=== PATIENT | female | born 1980 | race Caucasian/White ===

== ENCOUNTER 2022-01-15 15:39 | Emergency (ER) | payer MEDICAID, SELFPAY ==
[2022-01-15 15:41] VITALS: BP 132/85; PULSE 118; RESP 18; TEMP 36.6; O2SAT 100; BMI 21.9
[2022-01-15 16:25] LABS: Bacteria 0 SEEN /hpf (None Seen); Mucous, Urine 0 SEEN /hpf (<or=2+); Red Blood Cells-Urine 0 SEEN /hpf (0-5); Squamous Epithelial Cells - UA 0 SEEN /hpf (5-10); White Blood Cells 0 SEEN /hpf (0-5)
[2022-01-15] MEDS: 0.9% Normal Saline 1,000 ML 999 ML IV (16:32)
[2022-01-15] MEDS: LORazepam 2 MG/ML Syringe 1 MG IV (16:33)
[2022-01-15 16:35] LABS: Color, Urine Yellow (Yellow); Glucose, Dipstick Normal (Normal); Ketone-Dipstick Negative (Negative); Leukocyte Esterase-Dipstick 25 /ul (Negative); Nitrite-Dipstick Negative (Negative); Occult Blood-Urine 25 /ul (Negative); Protein-Dipstick 15 mg/dl (Negative); Urine Bilirubin Dipstick Negative (Negative); Urine Clarity Clear (Clear); Urine Urobilinogen Normal (Normal)
[2022-01-15 16:36] LABS: Absolute Lymphocyte Count 3.04 X10^3/uL (0.83-4.51); Absolute Neutrophil Count 12.4 X10^3/uL (2.0-7.7); Basophil% 0.6 % (0-1); Eosinophil# 0.26 X10^3/uL; Eosinophils% 1.4 % (0-5); Hematocrit 42.8 % (37-47); Hemoglobin 14.3 g/dL (12.0-15.0); Lymphocyte # 3.04 X10^3/ul (0.83-4.51); Lymphocyte % 16.8 % (19-41); Mean Corp Hgb Conc 33.4 g/dL (32-36); Mean Corpuscular Hgb 30.5 pg (27.0-32.0); Mean Corpuscular Volume 91.3 fL (81-99); Mean Platelet Vol. 8.7 fl (6.2-12.0); Monocyte# 2.18 X10^3/uL; Monocyte% 12.1 % (0-10); NRBC Flagged by Analyzer 0 % (0-5); Neutrophil # 12.39 X10^3/uL (2.7-7.7); Neutrophil % 68.7 % (47-70); POSITIVE DIFFERENTIAL YES; Platelet Count 346 K/mm3 (150-450); RBC Distribution Width SD 42.9 fl (35.1-43.9); Red Blood Count 4.69 M/mm3 (4.2-5.4); White Blood Count 18.1 K/mm3 (4.4-11.0)
[2022-01-15 16:39] LABS: Differential Indicated SCAN CRITERIA MET
[2022-01-15 16:45] LABS: Amphetamine Urine VISTA NEGATIVE (<1000 ng/mL); Barbiturate Urine VISTA NEGATIVE (< 200 ng/mL); Benzodiazepine Urine VISTA NEGATIVE (< 200 ng/mL); Cocaine Urine VISTA NEGATIVE (< 300 ng/mL); Ecstacy Urine VISTA NEGATIVE (< 500 ng/mL); Methadone Urine VISTA NEGATIVE (< 300 ng/mL); PCP Urine VISTA NEGATIVE (< 25 ng/mL); THC Urine VISTA POSITIVE (< 50 ng/mL); Vista UDS pH Range 6
[2022-01-15 16:59] LABS: Internal QC Validated? YES +Cl - CLEAR BKGD; Pregnancy, Serum, hCG Quali. NEGATIVE Negative
[2022-01-15 17:01] LABS: ALB/GLOB Ratio 1.4 RATIO (0.9-2.4); AST(SGOT) 10 U/L (15-37); Alanine Aminotransfer ALT/SGPT 19 U/L (13-56); Albumin, Serum 4.1 g/dL (3.2-5.0); Alkaline Phosphatase 61 U/L (45-117); Anion Gap 5 (5-15); BUN 12 mg/dL (7-18); BUN/Creat Ratio 13.5 RATIO (10-20); Calcium,Total 8.6 mg/dL (8.5-10.1); Chloride 108 mmol/L (98-107); Creatinine, Serum 0.89 mg/dL (0.55-1.02); EST Glomerular Filtration Rate 75 mL/min (>60); Est Glom Filt Rate - Afr Amer 91 mL/min (>60); Estimated Creatinine Clearance 67.12 ml/min; Glucose 141 mg/dL (74-106); Potassium 4.1 mmol/L (3.5-5.1); Protein, Total 7.1 g/dL (6.4-8.2); Sodium Level 139 mmol/L (136-145); Thyroid Stim Hormone (TSH) 0.69 uIU/mL (0.358-3.74)
[2022-01-15 17:02] LABS: Alcohol, Blood (Medical)-Serum < 3.0 mg/dL
[2022-01-15 17:07] LABS: Differential Comment SCANNED
--- NOTE | 2022-01-15 17:34 | NURSING ---
CRISIS AWARE PT NEEDS TO BE SEEN
--- NOTE | 2022-01-15 17:36 | EX.ED.DYSGE1 ---
HPI <BRETT Quiroga - Last Filed: 01/15/22 18:26> History of Present Illness Chief Complaint: Mental Health Narrative Narrative: 41-year-old female with no significant medical history presents to the emergency department by EMS for complaints of paranoia. Patient arrives extremely anxious, patient does believe that there are multiple people trying to kill her, she states that there are multiple things happening in her life that she can prove this is happening. She has multiple people calling her, patient states that when she calls the numbers back there is no answer. She states that people continue to add numbers and subtract numbers from her phone to confuse her. Patient states that this has been going on as long as 2 years. Patient also states that 1 month ago she was diagnosed with Lyme disease, was treated for a full course for 2 weeks and then has followed up with infectious disease doctor x2. This is all been in [facility]. Today, the patient states that she is has been even more stressed, she is scared for her life as well as the safety of her children. Her mother is attending her. PFS <BRETT Quiroga - Last Filed: 01/15/22 18:26> [facility] Medical History (Updated 01/15/22 @ 21:[address] Viri Boland, DO) Chronic ITP (idiopathic thrombocytopenia) Home Medications NK 01/15/22 [History Last Taken Unknown] Allergy/AdvReac Type Severity Reaction Status Date / Time No Known Allergies Allergy Verified 01/15/22 15:43 Surgical History (Updated 01/15/22 @ 15:46 by Nena Garduno) History of splenectomy Social History Smoking Status: Current every day smoker tobacco type: cigarettes ROS <BRETT Quiroga - Last Filed: 01/15/22 18:26> ROS ED ROS Narrative Constitutional: Negative for fever, chills, weight loss or gain, weakness Eyes: Negative for vision loss, vision change, double vision ENT: Negative for any hearing changes, ringing in the ears, discharge, pain Nose: Negative for any congestion, runny nose, sinus pain, allergies Throat: Negative for any sore throat, swelling, voice changes, Cardiovascular: Negative for any chest pain, tightness, palpitations, racing heartbeat Respiratory: Negative for any cough, sputum production, hemoptysis, shortness of breath, shortness of breath on exertion, Gastrointestinal: Negative for any abdominal pain, nausea, vomiting, diarrhea, constipation, blood in stool, blood in vomit : Negative for any urinary frequency, incontinence, dysuria, retention, blood in urine Muscle skeletal: Negative for any muscle joint pain, stiffness, myalgias, arthralgias, neck pain, back pain Neurological: Negative for any headache, dizziness, syncope, numbness or tingling Skin: Negative for any rashes, lumps, itching, abrasions, lacerations Psychiatric: Negative for any depression, suicidal ideation, homicidal ideation. Positive for anxiety, stress, paranoia Hematologic: Negative for any easy bruising, excessive bruising, easy bleeding Allergies: Negative for any eczema, hives, rash EXAM <BRETT Quiroga - Last Filed: 01/15/22 18:26> Physical Exam Const Vital Signs: 01/15/22 15:41 01/15/22 17:47 01/15/22 18:09 Temperature 97.8 F Temperature Source Temporal Pulse Rate 118 H 79 Respiratory Rate 18 16 18 Blood Pressure 132/85 H 108/67 Blood Pressure Mean 100 80 Pulse Ox 100 99 Oxygen Delivery Method Room Air Room Air 01/15/22 20:59 01/15/22 22:14 Temperature Temperature Source Pulse Rate 84 110 H Respiratory Rate 16 Blood Pressure 140/62 H Blood Pressure Mean 88 Pulse Ox 99 Oxygen Delivery Method Positive well nourished and well developed General Appearance ED: well developed HEENT Reports TM's clear and moist mucous membranes Negative for trauma or tenderness Tympanic Membrane ED: Yes TM's clear Eyes PERRL and EOMs intact bilaterally Neck no lymphadenopathy and supple Chest Wall inspection of chest normal and palpation of chest normal Resp normal respiratory effort and clear to auscultation bilaterally Effort and Inspection: pain with movement Cardio regular rate, regular rhythm and no murmurs GI normal to inspection, nondistended, normoactive bowel sounds, non-tender and non-distended Auscultation: normoactive bowel sounds Palpation: soft Back/Spine no CVA tenderness Neuro oriented x3 and CN's II-XII intact bilaterally Sensorium / Orientation: alert Motor Exam: strength 5/5 throughout Psych Psych Narrative: Patient continues to look around the room, patient shows clear signs of paranoia. She denies any want of hurting herself or others. She is tearful when talking about the specific things are happening to her that she and her mind prove that this is a plot against her. I did talk to her mother, I asked the mother if she has seen any of the things that the patient is talking about. She denies. The patient continually states that she is not crazy. Mood & Affect: anxious Skin no rashes or lesions noted <Dr. Viri Boland DO - Last Filed: 01/15/22 22:28> Physical Exam Const Vital Signs: 01/15/22 15:41 01/15/22 17:47 01/15/22 18:09 Temperature 97.8 F Temperature Source Temporal Pulse Rate 118 H 79 Respiratory Rate 18 16 18 Blood Pressure 132/85 H 108/67 Blood Pressure Mean 100 80 Pulse Ox 100 99 Oxygen Delivery Method Room Air Room Air 01/15/22 20:59 01/15/22 22:14 Temperature Temperature Source Pulse Rate 84 110 H Respiratory Rate 16 Blood Pressure 140/62 H Blood Pressure Mean 88 Pulse Ox 99 Oxygen Delivery Method MDM <BRETT Quiroga - Last Filed: 01/15/22 18:26> [facility] Narrative Medical decision making narrative: Patient arrives alert, patient is very anxious, shows paranoid behavior. Patient denies any pain, patient's vital signs are stable. Patient did receive a mental health work-up, patient CBC does show a leukocytosis of 18.1, patient has no infectious disease process, patient has no complaints, patient's chemistries are unremarkable. Patient did receive a urinalysis drug abuse, it was only positive for cannabinoid. Due to to the patient's extreme paranoia, the feeling of her being unsafe at home secondary to her thinking someone is coming after, I did reach out to crisis who will evaluate her in the emergency department. Lab Data Labs: Laboratory Results - last 24 hr 01/15/22 01/15/22 01/15/22 16:20 16:20 16:27 WBC 18.1 H RBC 4.69 Hgb 14.3 Hct 42.8 MCV 91.3 MCH 30.5 MCHC 33.4 RDW Std Deviation 42.9 RDW Coeff of Gene 13.0 Plt Count 346 MPV 8.7 Immature Gran % (Auto) 0.400 Neut % (Auto) 68.7 Lymph % (Auto) 16.8 L [place] % (Auto) 12.1 H Eos % (Auto) 1.4 Baso % (Auto) 0.6 Absolute Neuts (auto) 12.4 H Absolute Lymphs (auto) 3.04 Nucleated RBC % 0 Differential Comment SCANNED Diff Path Review May foll Sodium Potassium Chloride Carbon Dioxide Anion Gap BUN Creatinine Estim Creat Clear Calc Est GFR (MDRD) Af Amer Est GFR (MDRD) Non-Af BUN/Creatinine Ratio Glucose Calcium Total Bilirubin AST ALT Alkaline Phosphatase Total Protein Albumin Globulin Albumin/Globulin Ratio TSH Serum , Qual Urine Color Yellow Urine Clarity Clear Urine pH 7.0 Ur Specific [place] 1.020 Urine Protein 15 H Urine Glucose (UA) Normal Urine Ketones Negative Urine Occult Blood 25 H Urine Nitrite Negative Urine Bilirubin Negative Urine Urobilinogen Normal Ur Leukocyte Esterase 25 H Urine RBC 0 SEEN Urine WBC 0 SEEN Ur Squamous Epith Cells 0 SEEN Urine Bacteria 0 SEEN Urine Mucus 0 SEEN Urine Opiates Screen NEGATIVE Urine Methadone Screen NEGATIVE Ur Barbiturates Screen NEGATIVE Ur Phencyclidine Scrn NEGATIVE Ur Amphetamines Screen NEGATIVE MDMA (Ecstasy) Screen NEGATIVE U Benzodiazepines Scrn NEGATIVE Urine Cocaine Screen NEGATIVE U Cannabinoids Screen POSITIVE H Ur Drug Screen Comment Ethyl Alcohol 01/15/22 01/15/22 01/15/22 16:27 16:27 16:27 WBC RBC Hgb Hct MCV MCH MCHC RDW Std Deviation RDW Coeff of Gene Plt Count MPV Immature Gran % (Auto) Neut % (Auto) Lymph % (Auto) [place] % (Auto) Eos % (Auto) Baso % (Auto) Absolute Neuts (auto) Absolute Lymphs (auto) Nucleated RBC % Differential Comment Diff Path Review Sodium 139 Potassium 4.1 Chloride 108 H Carbon Dioxide 26.0 Anion Gap 5 BUN 12 Creatinine 0.89 Estim Creat Clear Calc 67.12 Est GFR (MDRD) Af Amer 91 Est GFR (MDRD) Non-Af 75 BUN/Creatinine Ratio 13.5 Glucose 141 H Calcium 8.6 Total Bilirubin 0.60 AST 10 L ALT 19 Alkaline Phosphatase 61 Total Protein 7.1 Albumin 4.1 Globulin 3.0 Albumin/Globulin Ratio 1.4 TSH 0.69 Serum , Qual NEGATIVE Urine Color Urine Clarity Urine pH Ur Specific [place] Urine Protein Urine Glucose (UA) Urine Ketones Urine Occult Blood Urine Nitrite Urine Bilirubin Urine Urobilinogen Ur Leukocyte Esterase Urine RBC Urine WBC Ur Squamous Epith Cells Urine Bacteria Urine Mucus Urine Opiates Screen Urine Methadone Screen Ur Barbiturates Screen Ur Phencyclidine Scrn Ur Amphetamines Screen MDMA (Ecstasy) Screen U Benzodiazepines Scrn Urine Cocaine Screen U Cannabinoids Screen Ur Drug Screen Comment Ethyl Alcohol < 3.0 <Dr. Viri Boland, DO - Last Filed: 01/15/22 22:28> MDM MDM Narrative Medical decision making narrative: I have personally performed a face to face assessment of the patient and have reviewed the CHE Note. I performed a substantive portion of the visit including all aspects of the following. My frank findings include: History is [patient presents to the emergency department with complaint of paranoia. She presents via EMS with her mother. Patient states that if there are a group of people in [place] that are trying to get her. 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 She had a romantic relationship with an individual that ended up getting cancer and dying. Patient feels like there are cameras in her home watching her and people try to get her for the last 2 years. Patient denies any auditory or visual hallucinations. She denies suicidal ideation. Patient's mother states that patient had some paranoia issues for years but have progressively gotten worse over the last month. Patient also states that she was recently diagnosed with Lyme disease and was treated with antibiotics. Patient denies headache. She denies vision changes. She feels very anxious. Patient is requesting something for anxiety.] Exam is [HEENT-PERRLA, EOMI. Cranial nerves II through XII grossly intact. TMs clear. Mucous membranes moist. No adenopathy. Cardiovascular-regular rate and rhythm without murmur or ectopy Lungs-clear to auscultation, chest wall stable without crepitus or subcu emphysema Abdomen-normoactive bowel sounds, soft, nontender, no rebound or rigidity, no peritoneal signs. Extremities-intact ?4, normal range of motion, normal pulses, atraumatic] Medical Decison Making [lab work significant for an elevated white blood cell count however no source noted for possible infection. Lab work otherwise unremarkable. Urinalysis was unremarkable. Toxicology screen was positive for THC. Patient denies any other drug use. Patient was evaluated by crisis and it was felt that patient would benefit from inpatient hospitalization and stabilization of her paranoia. Plan will be to transfer patient to psychiatric facility for further evaluation and treatment. I did give patient a milligram of Ativan IV. She was given a liter of same fluid bolus.] Care of patient turned over to evening physician awaiting acceptance and transfer to psychiatric facility. Other additions or changes: [None] Lab Data Attestation: I reviewed the patient's lab results. Labs: Laboratory Results - last 24 hr 01/15/22 01/15/22 01/15/22 16:20 16:20 16:27 WBC 18.1 H RBC 4.69 Hgb 14.3 Hct 42.8 MCV 91.3 MCH 30.5 MCHC 33.4 RDW Std Deviation 42.9 RDW Coeff of Gene 13.0 Plt Count 346 MPV 8.7 Immature Gran % (Auto) 0.400 Neut % (Auto) 68.7 Lymph % (Auto) 16.8 L [place] % (Auto) 12.1 H Eos % (Auto) 1.4 Baso % (Auto) 0.6 Absolute Neuts (auto) 12.4 H Absolute Lymphs (auto) 3.04 Nucleated RBC % 0 Differential Comment SCANNED Diff Path Review May foll Sodium Potassium Chloride Carbon Dioxide Anion Gap BUN Creatinine Estim Creat Clear Calc Est GFR (MDRD) Af Amer Est GFR (MDRD) Non-Af BUN/Creatinine Ratio Glucose Calcium Total Bilirubin AST ALT Alkaline Phosphatase Total Protein Albumin Globulin Albumin/Globulin Ratio TSH Serum , Qual Urine Color Yellow Urine Clarity Clear Urine pH 7.0 Ur Specific [place] 1.020 Urine Protein 15 H Urine Glucose (UA) Normal Urine Ketones Negative Urine Occult Blood 25 H Urine Nitrite Negative Urine Bilirubin Negative Urine Urobilinogen Normal Ur Leukocyte Esterase 25 H Urine RBC 0 SEEN Urine WBC 0 SEEN Ur Squamous Epith Cells 0 SEEN Urine Bacteria 0 SEEN Urine Mucus 0 SEEN Urine Opiates Screen NEGATIVE Urine Methadone Screen NEGATIVE Ur Barbiturates Screen NEGATIVE Ur Phencyclidine Scrn NEGATIVE Ur Amphetamines Screen NEGATIVE MDMA (Ecstasy) Screen NEGATIVE U Benzodiazepines Scrn NEGATIVE Urine Cocaine Screen NEGATIVE U Cannabinoids Screen POSITIVE H Ur Drug Screen Comment Ethyl Alcohol 01/15/22 01/15/22 01/15/22 16:27 16:27 16:27 WBC RBC Hgb Hct MCV MCH MCHC RDW Std Deviation RDW Coeff of Gene Plt Count MPV Immature Gran % (Auto) Neut % (Auto) Lymph % (Auto) [place] % (Auto) Eos % (Auto) Baso % (Auto) Absolute Neuts (auto) Absolute Lymphs (auto) Nucleated RBC % Differential Comment Diff Path Review Sodium 139 Potassium 4.1 Chloride 108 H Carbon Dioxide 26.0 Anion Gap 5 BUN 12 Creatinine 0.89 Estim Creat Clear Calc 67.12 Est GFR (MDRD) Af Amer 91 Est GFR (MDRD) Non-Af 75 BUN/Creatinine Ratio 13.5 Glucose 141 H Calcium 8.6 Total Bilirubin 0.60 AST 10 L ALT 19 Alkaline Phosphatase 61 Total Protein 7.1 Albumin 4.1 Globulin 3.0 Albumin/Globulin Ratio 1.4 TSH 0.69 Serum , Qual NEGATIVE Urine Color Urine Clarity Urine pH Ur Specific [place] Urine Protein Urine Glucose (UA) Urine Ketones Urine Occult Blood Urine Nitrite Urine Bilirubin Urine Urobilinogen Ur Leukocyte Esterase Urine RBC Urine WBC Ur Squamous Epith Cells Urine Bacteria Urine Mucus Urine Opiates Screen Urine Methadone Screen Ur Barbiturates Screen Ur Phencyclidine Scrn Ur Amphetamines Screen MDMA (Ecstasy) Screen U Benzodiazepines Scrn Urine Cocaine Screen U Cannabinoids Screen Ur Drug Screen Comment Ethyl Alcohol < 3.0 Discharge Plan Triage Chief Complaint: Mental Health ED Midlevel Provider: Harolod Hall ED Provider: Viri Boland Dx/Rx/DC Orders Clinical Impression: Paranoia (psychosis) Prescriptions: No Action NK RF: 0 Primary Care Provider: Care Physician,No Primary Referrals: Care Physician,No Primary [Primary Care Provider] - Disposition Disposition: Psychiatric Hospital or Unit
[2022-01-15 17:47] VITALS: RESP 16
[2022-01-15 18:09] VITALS: BP 108/67; PULSE 79; RESP 18; O2SAT 99
--- NOTE | 2022-01-15 18:26 | ED.RN ---
PER ADRIANA WITH CRISIS; NANDO WILL BE DOING THE ASSESSMENT. FAXED FACE SHEET TO ADRIANA. SHE SAID SHE DIDNT WANT THE CHART FAXED THAT NANDO WILL BE COMING HERE TO ASSESS.
[2022-01-15 20:59] VITALS: PULSE 84; RESP 16; O2SAT 99
[2022-01-15 22:14] VITALS: BP 140/62; PULSE 110
[2022-01-16 00:13] VITALS: PULSE 80; RESP 14; O2SAT 98
--- NOTE | 2022-01-16 01:21 | CT_ITS ---
STUDY: CT BRAIN WITHOUT CONTRAST REASON FOR EXAM: Female, 41 years old. Altered mental status RADIATION DOSAGE (If Supplied By Facility): CTDIvol = ( 44.99 ) mGy, DLP = ( 779.24 ) mGycm TECHNIQUE: Transaxial CT imaging of the brain was performed without administration of intravenous contrast material. 3.75 mm axials, 2.5 mm coronal and sagittal reconstructions. Individualized dose optimization techniques were used for this CT. COMPARISON: No relevant priors. FINDINGS: LIMITATIONS: None. BRAIN: Normal lugo/white matter differentiation. VENTRICLES: No hydrocephalus. EXTRA-AXIAL SPACES: No hemorrhages, fluid collections, or masses. CALVARIUM/SKULL BASE: Normal. FACE/SINUSES: Visualized portions unremarkable with the exception of slight mucosal thickening in a few ethmoid air cells, frontoethmoidal recesses and left sphenoid sinus. Well-aerated middle ears and mastoid sinuses. The sinuses are fully included. SOFT TISSUES: Incidentally noted left nostril piercing jewelry. OTHER: None. IMPRESSION: No acute intracranial abnormality. Minimal sinusitis. Electronically Signed: Jennifer Alexander MD at 1:54 EDT , CT/Brain/Head without Contrast
[2022-01-16 03:41] VITALS: PULSE 67; RESP 16; O2SAT 99
[2022-01-16 06:06] VITALS: RESP 16
--- NOTE | 2022-01-16 08:00 | NURSING ---
PER DARRIAN, [facility] DR AHUJA NURSE TO NURSE [phone]
--- NOTE | 2022-01-16 08:14 | NURSING ---
CALLED [facility], ETA IS 30 MIN
[2022-01-16 08:16] VITALS: BP 103/74; PULSE 88; O2SAT 100
[2022-01-16] MEDS: LORazepam 1 MG Tablet PO (08:35)
--- NOTE | 2022-01-16 09:14 | ED.RN ---
ATTEMPTED TO CALL REPORT . STAFF UNAVAILABLE AT THIS TIME. PHONE NUMBER LEFT WITH DISEASE CASE MANAGER RN. WILL CALL THIS RN WHEN ABLE TO TAKE REPORT
[2022-01-16 12:44] LABS: Pathologist Review Reviewed
== END 2022-01-16 09:05 ==
PROVIDERS: Nurse Practitioner; Emergency Provider Emergency Medicine; Visit Provider Emergency Medicine
DX: F29 Unspecified psychosis not due to a substance or known physiological condition (principal); D69.3 Immune thrombocytopenic purpura; F17.210 Nicotine dependence, cigarettes, uncomplicated
CPT/HCPCS: 70450; 80053; 80307; 81001; 82077; 84443; 84703; 85025; 96361; 96372; 96374; 96376; 99284; J7030; A4216